=== PATIENT | female | born 1950 | race Caucasian/White ===

== ENCOUNTER → 2017-03-27 | Outpatient (CLI) | payer OTHER | LOC: BMCIMAGING 14:49 | DX: Z12.31 Encounter for screening mammogram for malignant neoplasm of breast (principal) | CPT/HCPCS: G0202 ==

== ENCOUNTER 2018-01-20 14:27 | Emergency (ER) | payer OTHER ==
[2018-01-20 14:32] VITALS: TEMP 97.7
[2018-01-20] MEDS ORDERED: MECLIZINE HCL 25 MG TAB ONE (15:18)
[2018-01-20] MEDS ORDERED: MECLIZINE HCL 25 MG TAB PO ONE (15:19)
--- NOTE | 2018-01-20 15:23 | EDPHY ---
H & P Time Seen by Provider: 01/20/18 15:04 HPI/ROS: CHIEF COMPLAINT: Sudden dizziness HISTORY OF PRESENT ILLNESS: Patient had a sinus infection last week and just finished antibiotics less than a week ago. 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 She had sudden onset of dizziness. She describes it as a sense of spinning with head movement especially when turning her head to the left which was moderate to severe and associated with nausea. She did not have associated headache or neck stiffness or visual symptoms, no trouble with speech or thought or motor or sensory. Patient still has symptoms present. REVIEW OF SYSTEMS: Eye: no change in vision ENT: no sore throat Cardiac: No palpitations or syncope, no chest pain. No near syncope. She had a little bit of tightness in her shoulders and neck with the onset of symptoms which lasted about 45 min. Currently gone. Pulmonary: no cough or SOB Abdomen: no vomiting, diarrhea, abdominal pain Musculoskeletal: no back pain and no neck pain Skin: no rash Neuro: no headache Constitutional: no fever : no urinary symptoms A comprehensive 10 point review of systems is otherwise negative aside from elements mentioned in the history of present illness. PAST MEDICAL HISTORY: Includes hypercholesterolemia, negative for hypertension or diabetes. Family history positive for coronary disease on her father side at less than 70 years of age. Social history: Nonsmoker, , does have a lot of recent stress and anxiety General Appearance: Alert and conversant, cooperative. Eyes: No scleral icterus. Extraocular motion intact and pupils equal round reactive. She has nystagmus on left lateral gaze. Normal tympanic membranes. ENT, Mouth: Normal mucous membranes. Respiratory: Normal respiratory effort, breath sounds equal, lungs are clear to auscultation. Cardiovascular: Regular rate and rhythm. No carotid bruit. Gastrointestinal: Abdomen is soft and non tender. Neurological: Alert, face symmetric, normal motor and sensory in extremities. Normal [id number] bilaterally, no pronator drift, fluent speech. Toes downgoing bilaterally. Skin: Warm and dry, no rashes. Musculoskeletal: No peripheral edema. Psychiatric: Not agitated. Emergency Department course/MDM: Patient declined antiemetics. Oral meclizine 25, EKG and labs to include troponin. Low pretest suspicion for coronary disease. I think this is much more likely to be peripheral vertigo than central as it is sudden onset, positional trigger, normal neurologic examination. Patient noted to be hypertensive but I think that is much more likely to be a result of her symptoms than the cause. 1628: Patient re-examined and labs reviewed at this time. Negative troponin. Reasonable to discharge with symptomatic treatment for peripheral vertigo. Smoking Status: Never smoked Constitutional: Initial Vital Signs Temperature (C) 36.5 C 01/20/18 14:28 Heart Rate 84 01/20/18 14:28 Respiratory Rate 18 01/20/18 14:28 Blood Pressure 187/82 H 01/20/18 14:28 O2 Sat (%) 92 01/20/18 14:28 O2 Delivery Mode Room Air Allergies/Adverse Reactions: Sulfa (Sulfonamide Antibiotics) Allergy (Unknown, Verified 01/20/18 14:28) Home Medications: Medication Instructions Recorded Meclizine HCl [Meclizine HCl 25 mg 25 mg PO Q6 PRN #20 tab 01/20/18 (RX,OTC)] Pravastatin Sodium [Pravachol] 40 mg PO 01/20/18 Medical Decision Making - Diagnostics EKG Interpretation: 12-lead EKG interpreted by me; official reading is in trace master. My interpretation is sinus rhythm rate 60 with left atrial abnormalities, nonspecific T-wave flattening. Differential Diagnosis: Differential diagnosis considered for dizziness including but not limited to peripheral and central causes of vertigo, orthostatic causes including dehydration, and blood loss. - Data Points Laboratory Results: Laboratory Results 01/20/18 15:10 01/20/18 15:10 01/20/18 01/20/18 15:10 15:10 WBC 5.54 10^3/uL 10^3/uL (3.80-9.50) RBC 5.08 10^6/uL 10^6/uL (4.18-5.33) Hgb 16.0 g/dL g/dL (12.6-16.3) Hct 44.8 % % (38.0-47.0) MCV 88.2 fL fL (81.5-99.8) MCH 31.5 pg pg (27.9-34.1) MCHC 35.7 g/dL g/dL (32.4-36.7) RDW 11.9 % % (11.5-15.2) Plt Count 199 10^3/uL 10^3/uL (150-400) MPV 9.0 fL fL (8.7-11.7) Neut % (Auto) 64.0 % % (39.3-74.2) Lymph % (Auto) 26.7 % % (15.0-45.0) [place] % (Auto) 6.7 % % (4.5-13.0) Eos % (Auto) 1.8 % % (0.6-7.6) Baso % (Auto) 0.4 % % (0.3-1.7) Nucleat RBC Rel Count 0.0 % % (0.0-0.2) Absolute Neuts (auto) 3.55 10^3/uL 10^3/uL (1.70-6.50) Absolute Lymphs (auto) 1.48 10^3/uL 10^3/uL (1.00-3.00) Absolute Monos (auto) 0.37 10^3/uL 10^3/uL (0.30-0.80) Absolute Eos (auto) 0.10 10^3/uL 10^3/uL (0.03-0.40) Absolute Basos (auto) 0.02 10^3/uL 10^3/uL (0.02-0.10) Absolute Nucleated RBC 0.00 10^3/uL 10^3/uL (0-0.01) Immature Gran % 0.4 % % (0.0-1.1) Immature Gran # 0.02 10^3/uL 10^3/uL (0.00-0.10) Sodium 144 mEq/L mEq/L (135-145) Potassium 4.0 mEq/L mEq/L (3.5-5.2) Chloride 108 mEq/L mEq/L (97-110) Carbon Dioxide 23 mEq/l mEq/l (22-31) Anion Gap 13 mEq/L mEq/L (8-16) BUN 15 mg/dL mg/dL (7-23) Creatinine 0.8 mg/dL mg/dL (0.6-1.0) Estimated GFR > 60 Glucose 103 mg/dL H mg/dL (70-100) Calcium 9.3 mg/dL mg/dL (8.5-10.4) Troponin I < 0.012 ng/mL ng/mL (0.000-0.034) Medications Given: Discontinued Medications Meclizine HCl (Meclizine Hcl) 25 mg PO EDNOW ONE Stop: 01/20/18 15:20 Last Admin: 01/20/18 15:21 Dose: 25 mg Departure - Departure Disposition: Home, Routine, Self-Care Clinical Impression: Peripheral vertigo Qualifiers: Laterality: unspecified laterality Qualified Code(s): H81.399 - Other peripheral vertigo, unspecified ear Condition: Good Instructions: Vertigo (ED), Benign Paroxysmal Positional Vertigo (ED) Referrals: Kadie Mcdermott MD [Primary Care Provider] - As per Instructions Prescriptions: Meclizine HCl [Meclizine HCl 25 mg (RX,OTC)] 25 mg PO Q6 PRN #20 tab PRN Reason: Dizziness
[2018-01-20 15:25] LABS: PLATELET COUNT 199 10^3/uL (150-400)
--- NOTE | 2018-01-20 15:28 | CPEKG ---
Heart Rate: 60 RR Interval: 1000 P-R Interval: 176 QRSD Interval: 92 QT Interval: 372 QTC Interval: 372 P Brogan: 49 QRS Brogan: 53 T Wave Brogan: -86 EKG Severity - BORDERLINE ECG - EKG Impression: SINUS RHYTHM EKG Impression: PROBABLE LEFT ATRIAL ABNORMALITY EKG Impression: BORDERLINE T ABNORMALITIES, DIFFUSE LEADS Electronically Signed By: James Grant 20-Jan-2018 22:57:39
[2018-01-20 16:38] VITALS: BP 147/74; PULSE 79; RESP 14; O2SAT 96
== END 2018-01-20 16:43 | disposition home or self-care (01) ==
DX: H81.399 Other peripheral vertigo, unspecified ear (principal)

== ENCOUNTER → 2018-03-31 | Outpatient (CLI) | payer OTHER | LOC: BMCIMAGING 08:07 | PROVIDERS: ATTEND Family Medicine | DX: Z12.31 Encounter for screening mammogram for malignant neoplasm of breast (principal) ==

== ENCOUNTER 2018-10-29 19:14 | Emergency (ER) | payer OTHER ==
--- NOTE | 2018-10-29 19:57 | EDPHY ---
H & P Stated Complaint: SUBJ FEVER TODAY, LOW URINE OUTPUT/POLYPS, AND HEMOROID REMOVAL 11TH Time Seen by Provider: 10/29/18 19:31 HPI/ROS: CHIEF COMPLAINT: Fever, urinary symptoms HISTORY OF PRESENT ILLNESS: 68-year-old female presents with fever and urinary hesitancy. Status post hemorrhoidectomy and colon polyp removal 2 days ago at an outside facility. She underwent general anesthesia for the procedure. She felt fine yesterday. Onset of fever to 100 this afternoon, associated with urinary hesitancy. She has a scopolamine on postoperatively. No URI symptoms, cough, abdominal pain or rectal pain. REVIEW OF SYSTEMS: complete 10 point ROS reviewed and is negative except for the noted elements in the HPI - Personal History Current Tetanus Diphtheria and Acellular Pertussis (TDAP): No - Medical/Surgical History Hx Asthma: No Hx Chronic Respiratory Disease: No Hx Diabetes: No Hx Cardiac Disease: No Hx Renal Disease: No Hx Cirrhosis: No Hx Alcoholism: No Hx HIV/AIDS: No Hx Splenectomy or Spleen Trauma: No Other PMH: cholesterol, POLYPS REMOVED, HEMOIDECTOMY, KNEE SCOPE - Social History Smoking Status: Never smoked Additional Social History: - Physical Exam Exam: General Appearance: Alert, pleasant Eyes: Pupils equal and round, no conjunctival pallor or injection ENT, Mouth: Mucous membranes moist, no pharyngeal erythema Neck: Normal inspection Respiratory: Lungs are clear to auscultation Cardiovascular: Regular rate and rhythm Gastrointestinal: Abdomen is soft and nontender Rectal: Normal postop appearance, no swelling, drinking or erythema Neurological: A&O, nonfocal, normal gait Skin: Warm and dry Extremities: Normal inspection, no erythema Psychiatric: Mood and affect normal Constitutional: Initial Vital Signs Temperature (C) 36.5 C 10/29/18 19:20 Heart Rate 95 10/29/18 19:20 Respiratory Rate 16 10/29/18 19:20 Blood Pressure 182/93 H 10/29/18 19:20 O2 Sat (%) 91 L 10/29/18 19:20 O2 Delivery Mode Room Air Allergies/Adverse Reactions: Sulfa (Sulfonamide Antibiotics) Allergy (Unknown, Verified 01/20/18 14:28) Home Medications: Medication Instructions Recorded Colace 10/29/18 DIAZEPAM 5 mg 10/29/18 Hydrocodone-Acetamin 5-325 mg 10/29/18 Medical Decision Making ED Course/Re-evaluation: This patient presents with low-grade fever, and urinary symptoms. Urinary symptoms may be secondary to scopolamine patch. The patch was removed. Urinalysis reveals no evidence of UTI. Influenza negative. Likely viral etiology of fever. No evidence of postop complication. Fever instructions given. Pt will f/u 2 days with PCP if fever persists. Return for worsening or localizing signs/sx. Differential Diagnosis: Differential diagnosis includes pyelonephritis, cholecystitis, influenza, cellulitis, pneumonia, abscess, meningitis. - Data Points Laboratory Results: Laboratory Results 10/29/18 20:06 10/29/18 20:06 10/29/18 10/29/18 10/29/18 20:06 20:06 20:00 WBC 9.80 10^3/uL H 10^3/uL (3.80-9.50) RBC 5.05 10^6/uL 10^6/uL (4.18-5.33) Hgb 16.1 g/dL g/dL (12.6-16.3) Hct 45.9 % % (38.0-47.0) MCV 90.9 fL fL (81.5-99.8) MCH 31.9 pg pg (27.9-34.1) MCHC 35.1 g/dL g/dL (32.4-36.7) RDW 12.1 % % (11.5-15.2) Plt Count 226 10^3/uL 10^3/uL (150-400) MPV 9.1 fL fL (8.7-11.7) Neut % (Auto) 72.4 % % (39.3-74.2) Lymph % (Auto) 20.1 % % (15.0-45.0) [place] % (Auto) 5.5 % % (4.5-13.0) Eos % (Auto) 1.4 % % (0.6-7.6) Baso % (Auto) 0.4 % % (0.3-1.7) Nucleat RBC Rel Count 0.0 % % (0.0-0.2) Absolute Neuts (auto) 7.09 10^3/uL H 10^3/uL (1.70-6.50) Absolute Lymphs (auto) 1.97 10^3/uL 10^3/uL (1.00-3.00) Absolute Monos (auto) 0.54 10^3/uL 10^3/uL (0.30-0.80) Absolute Eos (auto) 0.14 10^3/uL 10^3/uL (0.03-0.40) Absolute Basos (auto) 0.04 10^3/uL 10^3/uL (0.02-0.10) Absolute Nucleated RBC 0.00 10^3/uL 10^3/uL (0-0.01) Immature Gran % 0.2 % % (0.0-1.1) Immature Gran # 0.02 10^3/uL 10^3/uL (0.00-0.10) Sodium 143 mEq/L mEq/L (135-145) Potassium 4.0 mEq/L mEq/L (3.5-5.2) Chloride 111 mEq/L H mEq/L (97-110) Carbon Dioxide 22 mEq/l mEq/l (22-31) Anion Gap 10 mEq/L mEq/L (6-14) BUN 18 mg/dL mg/dL (7-23) Creatinine 1.0 mg/dL mg/dL (0.6-1.0) Estimated GFR 55 Glucose 107 mg/dL H mg/dL (70-100) Calcium 9.2 mg/dL mg/dL (8.5-10.4) Urine Color Urine Appearance Urine pH Ur Specific [place] Urine Protein Urine Ketones Urine Blood Urine Nitrate Urine Bilirubin Urine Urobilinogen Ur Leukocyte Esterase Urine RBC Urine WBC Ur Epithelial Cells Urine Glucose Nasal Influenza A PCR NEGATIVE FOR FLU A (NEGATIVE) Nasal Influenza B PCR NEGATIVE FOR FLU B (NEGATIVE) 10/29/18 19:55 WBC RBC Hgb Hct MCV MCH MCHC RDW Plt Count MPV Neut % (Auto) Lymph % (Auto) [place] % (Auto) Eos % (Auto) Baso % (Auto) Nucleat RBC Rel Count Absolute Neuts (auto) Absolute Lymphs (auto) Absolute Monos (auto) Absolute Eos (auto) Absolute Basos (auto) Absolute Nucleated RBC Immature Gran % Immature Gran # Sodium Potassium Chloride Carbon Dioxide Anion Gap BUN Creatinine Estimated GFR Glucose Calcium Urine Color PALE YELLOW Urine Appearance CLEAR Urine pH 5.0 (5.0-7.5) Ur Specific [place] 1.006 (1.002-1.030) Urine Protein NEGATIVE (NEGATIVE) Urine Ketones NEGATIVE (NEGATIVE) Urine Blood 1+ H (NEGATIVE) Urine Nitrate NEGATIVE (NEGATIVE) Urine Bilirubin NEGATIVE (NEGATIVE) Urine Urobilinogen NEGATIVE EU EU (0.2-1.0) Ur Leukocyte Esterase NEGATIVE (NEGATIVE) Urine RBC 1-3 /hpf /hpf (0-3) Urine WBC 1-3 /hpf /hpf (0-3) Ur Epithelial Cells NONE SEEN /lpf /lpf (NONE-1+) Urine Glucose NEGATIVE (NEGATIVE) Nasal Influenza A PCR Nasal Influenza B PCR Departure - Departure Disposition: Home, Routine, Self-Care Clinical Impression: Fever Qualifiers: Fever type: unspecified Qualified Code(s): R50.9 - Fever, unspecified Condition: Good Instructions: Fever in Adults (ED) Additional Instructions: Ibuprofen 600mg every 8 hours as needed for fever. Followup in 2 days if fever persists. Referrals: Kadie Mcdermott MD [Primary Care Provider] - As per Instructions
[2018-10-29 20:20] LABS: PLATELET COUNT 226 10^3/uL (150-400)
[2018-10-29 21:20] VITALS: BP 133/78
== END 2018-10-29 21:19 | disposition home or self-care (01) ==
DX: R50.9 Fever, unspecified (principal); R39.11 Hesitancy of micturition

== ENCOUNTER → 2019-04-29 | Outpatient (CLI) | payer OTHER | LOC: BMCIMAGING 09:34 ==